=== PATIENT | male | born 1975 | race Caucasian/White ===

== ENCOUNTER 2021-08-20 17:20 | Inpatient (IN) | payer OTHER ==
[2021-08-20 18:14] VITALS: BMI 30.1
[2021-08-20] MEDS ORDERED: MENTHOL/PHENOL 1 EACH UD MM PRN (19:23)
[2021-08-20] MEDS ORDERED: MAGNESIUM HYDROX 2400MG/30ML ORAL SUSPENSION 30 ML CUP PO PRN (19:23)
[2021-08-20] MEDS ORDERED: ACETAMINOPHEN 325 MG TABLET (FP) PO PRN ×2 (19:23)
[2021-08-20] MEDS ORDERED: MAGNESIUM CITRATE 300 ML BOTTLE PO PRN (19:23)
[2021-08-20] MEDS ORDERED: MAG HYDROX/AL HYDROX/SIMETH 30 ML UNIT-DOSE CUP PO PRN (19:23)
[2021-08-20] MEDS ORDERED: NICOTINE POLACRILEX 2 MG GUM BUC PRN (19:23)
[2021-08-20] MEDS ORDERED: ONDANSETRON *ODT* 4 MG TABLET SL PRN (19:23)
[2021-08-20] MEDS ORDERED: BISMUTH SUBSALICYLATE 524 MG/30 ML PO PRN (19:23)
[2021-08-20] MEDS ORDERED: methaDONE HCL 10 MG TABLET (FOR DETOX USE ONLY) PO ONE (19:27)
[2021-08-20] MEDS ORDERED: methaDONE HCL 10 MG TABLET (FOR DETOX USE ONLY) ONE (20:23)
[2021-08-20] MEDS: MELATONIN 5 MG TABLETS PO SCH (21:17)
[2021-08-20] MEDS: THIAMINE HCL 100 MG TABLET (FP) PO SCH (21:17)
[2021-08-21] MEDS: cloNIDine HCL 0.1 MG TABLET PO PRN ×3 (01:28→17:20)
[2021-08-21] MEDS: METHOCARBAMOL 500 MG TABLET PO PRN ×3 (01:30→22:13)
[2021-08-21] MEDS: IBUPROFEN 400 MG TABLET (FP) PO PRN (06:47)
[2021-08-21] MEDS: PRENATAL VITAMINS W/ FOLIC ACID TABLET (FP) PO SCH (09:09)
[2021-08-21] MEDS: diazePAM 5 MG TABLET PO PRN ×4 (09:09→22:13)
[2021-08-21] MEDS: NICOTINE 21 MG/24 HOURS TOPICAL PATCH TD SCH (09:10)
[2021-08-21 11:29] LABS: HEMATOCRIT 40.7 % (35.4-49); HEMOGLOBIN 14.2 GM/dL (11.7-16.9); MCH 30.2 pg (25.7-33.7); MCHC 34.9 g/dl (32.0-35.9); MEAN CELL VOLUME 86.4 fl (80-96); MEAN PLT VOLUME 9.5 fl (7.5-11.1); PLATELET COUNT 173 10^3/uL (134-434); RBC 4.71 M/mm3 (4.00-5.60); RDW 13.3 % (11.9-15.9); WHITE BLOOD COUNT 5.9 K/mm3 (4.0-10.0)
[2021-08-21 11:52] LABS: ALBUMIN 3.7 g/dl (3.4-5.0); CALCIUM 9.4 mg/dL (8.5-10.1)
[2021-08-21 11:53] LABS: BLOOD UREA NITROGEN 9.9 mg/dL (7-18)
[2021-08-21 11:55] LABS: CREATININE 0.7 mg/dL (0.55-1.3)
[2021-08-21 11:56] LABS: BILIRUBIN,TOTAL 0.4 mg/dL (0.2-1); TOT PROT 6.5 g/dl (6.4-8.2)
[2021-08-21] MEDS ORDERED: NICOTINE 10 MG CARTRIDGE (INHALER) IH PRN (14:34)
[2021-08-21] MEDS: hydrOXYzine PAMOATE 25 MG CAPSULE (FP) PO PRN (14:39)
[2021-08-21] MEDS: MELATONIN 5 MG TABLETS PO SCH (22:13)
[2021-08-21] MEDS: THIAMINE HCL 100 MG TABLET (FP) PO SCH (22:13)
[2021-08-22] MEDS: cloNIDine HCL 0.1 MG TABLET PO PRN ×4 (02:39→23:48)
[2021-08-22] MEDS: diazePAM 5 MG TABLET PO PRN ×4 (02:39→21:19)
[2021-08-22] MEDS: METHOCARBAMOL 500 MG TABLET PO PRN ×3 (06:47→21:19)
[2021-08-22] MEDS ORDERED: methaDONE HCL 10 MG TABLET (FOR DETOX USE ONLY) PO ONE (10:00)
[2021-08-22] MEDS: PRENATAL VITAMINS W/ FOLIC ACID TABLET (FP) PO SCH (10:48)
[2021-08-22] MEDS: NICOTINE 21 MG/24 HOURS TOPICAL PATCH TD SCH (10:49)
[2021-08-22] MEDS: hydrOXYzine PAMOATE 25 MG CAPSULE (FP) PO PRN ×2 (12:44→17:36)
[2021-08-22] MEDS: IBUPROFEN 400 MG TABLET (FP) PO PRN (17:36)
[2021-08-22] MEDS: THIAMINE HCL 100 MG TABLET (FP) PO SCH (21:19)
[2021-08-22] MEDS: SUVOREXANT 10 MG TABLET PO PRN (22:40)
[2021-08-23] MEDS: diazePAM 5 MG TABLET PO PRN ×5 (01:22→22:21)
[2021-08-23] MEDS: hydrOXYzine PAMOATE 25 MG CAPSULE (FP) PO PRN (01:22)
[2021-08-23] MEDS: METHOCARBAMOL 500 MG TABLET PO PRN ×3 (03:46→16:54)
[2021-08-23] MEDS ORDERED: methaDONE HCL 10 MG TABLET (FOR DETOX USE ONLY) ONE (09:31)
[2021-08-23] MEDS: PRENATAL VITAMINS W/ FOLIC ACID TABLET (FP) PO SCH (10:33)
[2021-08-23] MEDS: cloNIDine HCL 0.1 MG TABLET PO PRN ×2 (10:34→20:45)
[2021-08-23] MEDS: NICOTINE 21 MG/24 HOURS TOPICAL PATCH TD SCH (10:34)
[2021-08-23] MEDS: IBUPROFEN 400 MG TABLET (FP) PO PRN (13:24)
[2021-08-23] MEDS: SUVOREXANT 10 MG TABLET PO PRN (20:44)
[2021-08-23] MEDS: THIAMINE HCL 100 MG TABLET (FP) PO SCH (21:25)
[2021-08-24] MEDS: diazePAM 5 MG TABLET PO PRN ×6 (02:27→22:37)
[2021-08-24] MEDS: METHOCARBAMOL 500 MG TABLET PO PRN ×3 (02:28→18:25)
[2021-08-24] MEDS: cloNIDine HCL 0.1 MG TABLET PO PRN (08:47)
[2021-08-24] MEDS ORDERED: methaDONE HCL 10 MG TABLET (FOR DETOX USE ONLY) PO ONE (10:00)
[2021-08-24] MEDS: NICOTINE 21 MG/24 HOURS TOPICAL PATCH TD SCH (10:20)
[2021-08-24] MEDS: PRENATAL VITAMINS W/ FOLIC ACID TABLET (FP) PO SCH (10:23)
[2021-08-24] MEDS: hydrOXYzine PAMOATE 25 MG CAPSULE (FP) PO PRN (18:25)
[2021-08-24] MEDS: THIAMINE HCL 100 MG TABLET (FP) PO SCH (22:38)
[2021-08-24] MEDS: SUVOREXANT 10 MG TABLET PO PRN (22:40)
[2021-08-25] MEDS: cloNIDine HCL 0.1 MG TABLET PO PRN (01:06)
[2021-08-25 06:41] VITALS: BP 108/87; PULSE 78; TEMP 97.1
== END 2021-08-25 09:24 | disposition home or self-care (01) | DRG 773 ==
LOC: YASAS 17:20 → Y6N 19:19
PROVIDERS: ADMIT Allergy & Immunology; ATTEND Allergy & Immunology
PROC: HZ2ZZZZ Detoxification Services for Substance Abuse Treatment (ICD-10-PCS; principal; 2021-08-20)
DX: F11.23 Opioid dependence with withdrawal (principal); F17.210 Nicotine dependence, cigarettes, uncomplicated; F19.282 Other psychoactive substance dependence with psychoactive substance-induced sleep disorder; F19.24 Other psychoactive substance dependence with psychoactive substance-induced mood disorder; G47.00 Insomnia, unspecified
CPT/HCPCS: 36415; 80053; 85027; 86780; 93005; 93010; C9803; J0735; U0003; U0005

== ENCOUNTER 2021-10-28 14:15 | Inpatient (IN) | payer OTHER ==
[2021-10-28 14:36] VITALS: BMI 27.8
[2021-10-28] MEDS ORDERED: BISMUTH SUBSALICYLATE 524 MG/30 ML PO PRN (17:16)
[2021-10-28] MEDS ORDERED: NALOXONE (NARCAN) HCL 4 MG/0.1 ML SPRAY NS PRN (17:16)
[2021-10-28] MEDS ORDERED: MAGNESIUM HYDROX 2400MG/30ML ORAL SUSPENSION 30 ML CUP PO PRN (17:16)
[2021-10-28] MEDS ORDERED: ACETAMINOPHEN 325 MG TABLET (FP) PO PRN (17:16)
[2021-10-28] MEDS ORDERED: MENTHOL/PHENOL 1 EACH UD MM PRN (17:16)
[2021-10-28] MEDS ORDERED: MAG HYDROX/AL HYDROX/SIMETH 30 ML UNIT-DOSE CUP PO PRN (17:16)
[2021-10-28] MEDS ORDERED: MAGNESIUM CITRATE 300 ML BOTTLE PO PRN (17:16)
[2021-10-28] MEDS ORDERED: ONDANSETRON *ODT* 4 MG TABLET SL PRN (17:16)
[2021-10-28] MEDS ORDERED: cloNIDine HCL 0.1 MG TABLET PO PRN (17:28)
[2021-10-28] MEDS ORDERED: ALBUTEROL SO4 HFA INHALER IH PRN (18:15)
[2021-10-28] MEDS: hydrOXYzine PAMOATE 25 MG CAPSULE (FP) PO PRN (18:37)
[2021-10-28] MEDS: diazePAM 5 MG TABLET PO PRN (18:37)
[2021-10-28] MEDS: guaiFENesin 200 MG/10 ML 10 ML UNIT-DOSE CUPS PO SCH (18:45)
[2021-10-28] MEDS: NICOTINE 10 MG CARTRIDGE (INHALER) IH PRN (18:47)
[2021-10-28] MEDS: THIAMINE HCL 100 MG TABLET (FP) PO SCH (22:29)
[2021-10-28] MEDS: METHOCARBAMOL 500 MG TABLET PO PRN (22:33)
[2021-10-28] MEDS ORDERED: MELATONIN 5 MG TABLETS PO SCH (23:00)
[2021-10-29] MEDS: guaiFENesin 200 MG/10 ML 10 ML UNIT-DOSE CUPS PO SCH ×5 (01:26→23:42)
[2021-10-29] MEDS: diazePAM 5 MG TABLET PO PRN ×4 (02:20→22:05)
[2021-10-29] MEDS: IBUPROFEN 400 MG TABLET (FP) PO PRN ×2 (06:11→22:07)
[2021-10-29] MEDS: METHOCARBAMOL 500 MG TABLET PO PRN ×2 (06:14→13:36)
[2021-10-29] MEDS: hydrOXYzine PAMOATE 25 MG CAPSULE (FP) PO PRN ×2 (06:14→13:36)
[2021-10-29] MEDS: PRENATAL VITAMINS W/ FOLIC ACID TABLET (FP) PO SCH (10:33)
[2021-10-29] MEDS: NICOTINE 10 MG CARTRIDGE (INHALER) IH PRN (10:47)
[2021-10-29 10:50] LABS: HEMATOCRIT 43.5 % (35.4-49); HEMOGLOBIN 14.9 GM/dL (11.7-16.9); MCH 29.8 pg (25.7-33.7); MCHC 34.2 g/dl (32.0-35.9); MEAN CELL VOLUME 87.2 fl (80-96); MEAN PLT VOLUME 9.2 fl (7.5-11.1); PLATELET COUNT 186 10^3/uL (134-434); RBC 4.98 M/mm3 (4.00-5.60); RDW 14.6 % (11.9-15.9); WHITE BLOOD COUNT 7.9 K/mm3 (4.0-10.0)
[2021-10-29 11:19] LABS: ALBUMIN 3.6 g/dl (3.4-5.0); CALCIUM 9.7 mg/dL (8.5-10.1)
[2021-10-29 11:20] LABS: BLOOD UREA NITROGEN 8.6 mg/dL (7-18)
[2021-10-29 11:22] LABS: CREATININE 0.7 mg/dL (0.55-1.3)
[2021-10-29 11:24] LABS: TOT PROT 6.5 g/dl (6.4-8.2)
[2021-10-29 11:25] LABS: BILIRUBIN,TOTAL 0.7 mg/dL (0.2-1)
[2021-10-29] MEDS: cloNIDine HCL 0.1 MG TABLET PO PRN (17:20)
[2021-10-29] MEDS ORDERED: methaDONE HCL 10 MG TABLET (FOR DETOX USE ONLY) PO ONE (22:00)
[2021-10-29] MEDS: THIAMINE HCL 100 MG TABLET (FP) PO SCH (22:05)
[2021-10-29] MEDS: SUVOREXANT 5 MG TABLET PO PRN (22:06)
[2021-10-30] MEDS: diazePAM 5 MG TABLET PO PRN ×6 (02:17→22:57)
[2021-10-30] MEDS: ACETAMINOPHEN 325 MG TABLET (FP) PO PRN ×2 (02:18→14:51)
[2021-10-30] MEDS: hydrOXYzine PAMOATE 25 MG CAPSULE (FP) PO PRN ×3 (02:18→22:08)
[2021-10-30] MEDS: METHOCARBAMOL 500 MG TABLET PO PRN ×3 (06:22→22:08)
[2021-10-30] MEDS: guaiFENesin 200 MG/10 ML 10 ML UNIT-DOSE CUPS PO SCH ×2 (06:23→12:19)
[2021-10-30] MEDS ORDERED: methaDONE HCL 10 MG TABLET (FOR DETOX USE ONLY) PO ONE ×4 (10:00→22:00)
[2021-10-30] MEDS: PRENATAL VITAMINS W/ FOLIC ACID TABLET (FP) PO SCH (10:34)
[2021-10-30] MEDS: cloNIDine HCL 0.1 MG TABLET PO PRN (12:55)
[2021-10-30] MEDS: IBUPROFEN 400 MG TABLET (FP) PO PRN ×2 (12:55→22:57)
[2021-10-30] MEDS ORDERED: guaiFENesin 200 MG/10 ML 10 ML UNIT-DOSE CUPS PO PRN (15:25)
[2021-10-30] MEDS: NICOTINE 10 MG CARTRIDGE (INHALER) IH PRN (21:53)
[2021-10-30] MEDS: SUVOREXANT 5 MG TABLET PO PRN (22:06)
[2021-10-30] MEDS: THIAMINE HCL 100 MG TABLET (FP) PO SCH (22:08)
[2021-10-31] MEDS: diazePAM 5 MG TABLET PO PRN ×4 (03:33→16:36)
[2021-10-31] MEDS: METHOCARBAMOL 500 MG TABLET PO PRN ×3 (05:42→22:10)
[2021-10-31] MEDS: hydrOXYzine PAMOATE 25 MG CAPSULE (FP) PO PRN ×2 (05:43→22:10)
[2021-10-31] MEDS ORDERED: methaDONE HCL 10 MG TABLET (FOR DETOX USE ONLY) PO ONE ×5 (10:00→22:00)
[2021-10-31] MEDS: PRENATAL VITAMINS W/ FOLIC ACID TABLET (FP) PO SCH (10:25)
[2021-10-31] MEDS: ACETAMINOPHEN 325 MG TABLET (FP) PO PRN (10:30)
[2021-10-31] MEDS: NICOTINE 10 MG CARTRIDGE (INHALER) IH PRN ×2 (12:39→22:13)
[2021-10-31] MEDS: IBUPROFEN 400 MG TABLET (FP) PO PRN (16:35)
[2021-10-31] MEDS ORDERED: diazePAM 5 MG TABLET PO ONE (22:00)
[2021-10-31] MEDS: SUVOREXANT 5 MG TABLET PO PRN (22:08)
[2021-10-31] MEDS: THIAMINE HCL 100 MG TABLET (FP) PO SCH (22:08)
[2021-11-01] MEDS: IBUPROFEN 400 MG TABLET (FP) PO PRN (01:54)
[2021-11-01] MEDS: METHOCARBAMOL 500 MG TABLET PO PRN (05:12)
[2021-11-01] MEDS: hydrOXYzine PAMOATE 25 MG CAPSULE (FP) PO PRN (05:12)
[2021-11-01 08:43] VITALS: BP 104/88; PULSE 80; TEMP 96.8
[2021-11-01] MEDS ORDERED: methaDONE HCL 10 MG TABLET (FOR DETOX USE ONLY) PO ONE ×2 (10:00)
[2021-11-02] MEDS ORDERED: methaDONE HCL 10 MG TABLET (FOR DETOX USE ONLY) PO ONE (10:00)
== END 2021-11-01 10:26 | disposition left against medical advice (07) | DRG 770 ==
LOC: YASAS 14:15 → Y3N 16:47
PROVIDERS: ADMIT Allergy & Immunology; ATTEND Allergy & Immunology
PROC: HZ2ZZZZ Detoxification Services for Substance Abuse Treatment (ICD-10-PCS; principal; 2021-10-28)
DX: F11.23 Opioid dependence with withdrawal (principal); F17.210 Nicotine dependence, cigarettes, uncomplicated; F19.24 Other psychoactive substance dependence with psychoactive substance-induced mood disorder; F19.280 Other psychoactive substance dependence with psychoactive substance-induced anxiety disorder; F19.282 Other psychoactive substance dependence with psychoactive substance-induced sleep disorder; J45.909 Unspecified asthma, uncomplicated; R05.9 Cough, unspecified; Z56.0 Unemployment, unspecified
CPT/HCPCS: 36415; 80053; 85027; 86780; 87811; C9803; J0735; U0003; U0005

== ENCOUNTER 2021-12-12 15:58 | Inpatient (IN) | payer OTHER ==
[2021-12-12] MEDS ORDERED: MENTHOL/PHENOL 1 EACH UD MM PRN (16:51)
[2021-12-12] MEDS ORDERED: MAG HYDROX/AL HYDROX/SIMETH 30 ML UNIT-DOSE CUP PO PRN (16:51)
[2021-12-12] MEDS ORDERED: ONDANSETRON *ODT* 4 MG TABLET SL PRN (16:51)
[2021-12-12] MEDS ORDERED: ALBUTEROL SO4 HFA INHALER IH PRN (16:51)
[2021-12-12] MEDS ORDERED: BISMUTH SUBSALICYLATE 524 MG/30 ML PO PRN (16:51)
[2021-12-12] MEDS ORDERED: MAGNESIUM HYDROX 2400MG/30ML ORAL SUSPENSION 30 ML CUP PO PRN (16:51)
[2021-12-12] MEDS ORDERED: P-EPHED 60MG/TRIPROLIDI 2.5MG TABLET PO PRN (16:51)
[2021-12-12] MEDS ORDERED: MAGNESIUM CITRATE 300 ML BOTTLE PO PRN (16:51)
[2021-12-12] MEDS ORDERED: ACETAMINOPHEN 325 MG TABLET (FP) PO PRN ×2 (16:51)
[2021-12-12 17:18] VITALS: BMI 26.9
[2021-12-12] MEDS: MELATONIN 5 MG TABLETS PO SCH (22:26)
[2021-12-12] MEDS: diazePAM 5 MG TABLET PO PRN (22:28)
[2021-12-12] MEDS: THIAMINE HCL 100 MG TABLET (FP) PO SCH (22:28)
[2021-12-12] MEDS ORDERED: methaDONE HCL 10 MG TABLET (FOR DETOX USE ONLY) PO ONE (22:45)
[2021-12-12] MEDS: hydrOXYzine PAMOATE 25 MG CAPSULE (FP) PO PRN (23:52)
[2021-12-12] MEDS ORDERED: methaDONE HCL 10 MG TABLET (FOR DETOX USE ONLY) ONE (23:58)
[2021-12-13] MEDS: diazePAM 5 MG TABLET PO PRN ×5 (02:34→20:48)
[2021-12-13] MEDS ORDERED: methaDONE HCL 10 MG TABLET (FOR DETOX USE ONLY) ONE (08:59)
[2021-12-13] MEDS: PRENATAL VITAMINS W/ FOLIC ACID TABLET (FP) PO SCH (10:31)
[2021-12-13] MEDS: cloNIDine HCL 0.1 MG TABLET PO PRN ×2 (10:34→22:13)
[2021-12-13 12:07] LABS: ALBUMIN 3.6 g/dl (3.4-5.0); BLOOD UREA NITROGEN 10.2 mg/dL (7-18); CALCIUM 9.2 mg/dL (8.5-10.1)
[2021-12-13 12:08] LABS: BILIRUBIN,TOTAL 0.3 mg/dL (0.2-1); CREATININE 0.6 mg/dL (0.55-1.3); TOT PROT 6.2 g/dl (6.4-8.2)
[2021-12-13 12:11] LABS: HEMATOCRIT 43.1 % (35.4-49); HEMOGLOBIN 14.2 GM/dL (11.7-16.9); MCH 29.1 pg (25.7-33.7); MEAN CELL VOLUME 88.2 fl (80-96); MEAN PLT VOLUME 9.3 fl (7.5-11.1); PLATELET COUNT 185 10^3/uL (134-434); RBC 4.89 M/mm3 (4.00-5.60); RDW 14.2 % (11.9-15.9); WHITE BLOOD COUNT 8.5 K/mm3 (4.0-10.0)
[2021-12-13] MEDS: NICOTINE 10 MG CARTRIDGE (INHALER) IH PRN ×2 (12:14→22:46)
[2021-12-13] MEDS: METHOCARBAMOL 500 MG TABLET PO PRN ×2 (12:40→18:57)
[2021-12-13] MEDS: hydrOXYzine PAMOATE 25 MG CAPSULE (FP) PO PRN (16:51)
[2021-12-13] MEDS: MELATONIN 5 MG TABLETS PO SCH (22:13)
[2021-12-13] MEDS: THIAMINE HCL 100 MG TABLET (FP) PO SCH (22:13)
[2021-12-14] MEDS: diazePAM 5 MG TABLET PO PRN ×6 (02:24→23:42)
[2021-12-14] MEDS: METHOCARBAMOL 500 MG TABLET PO PRN ×3 (02:25→18:51)
[2021-12-14] MEDS: hydrOXYzine PAMOATE 25 MG CAPSULE (FP) PO PRN ×4 (07:06→22:38)
[2021-12-14] MEDS ORDERED: methaDONE HCL 10 MG TABLET (FOR DETOX USE ONLY) PO ONE (10:00)
[2021-12-14] MEDS: PRENATAL VITAMINS W/ FOLIC ACID TABLET (FP) PO SCH (10:42)
[2021-12-14] MEDS: cloNIDine HCL 0.1 MG TABLET PO PRN ×3 (12:42→23:42)
[2021-12-14] MEDS: MELATONIN 5 MG TABLETS PO SCH (22:38)
[2021-12-14] MEDS: THIAMINE HCL 100 MG TABLET (FP) PO SCH (22:38)
[2021-12-15] MEDS: diazePAM 5 MG TABLET PO PRN ×5 (03:44→21:48)
[2021-12-15] MEDS: NICOTINE 10 MG CARTRIDGE (INHALER) IH PRN ×3 (03:46→22:25)
[2021-12-15] MEDS ORDERED: methaDONE HCL 10 MG TABLET (FOR DETOX USE ONLY) ONE (09:33)
[2021-12-15] MEDS: hydrOXYzine PAMOATE 25 MG CAPSULE (FP) PO PRN ×3 (10:08→20:35)
[2021-12-15] MEDS: PRENATAL VITAMINS W/ FOLIC ACID TABLET (FP) PO SCH (10:09)
[2021-12-15] MEDS: METHOCARBAMOL 500 MG TABLET PO PRN ×2 (12:16→20:35)
[2021-12-15] MEDS: IBUPROFEN 400 MG TABLET (FP) PO PRN (16:19)
[2021-12-15] MEDS: MELATONIN 5 MG TABLETS PO SCH (21:48)
[2021-12-15] MEDS: THIAMINE HCL 100 MG TABLET (FP) PO SCH (21:48)
[2021-12-16] MEDS: diazePAM 5 MG TABLET PO PRN ×6 (01:49→22:46)
[2021-12-16] MEDS: IBUPROFEN 400 MG TABLET (FP) PO PRN (01:50)
[2021-12-16] MEDS ORDERED: methaDONE HCL 10 MG TABLET (FOR DETOX USE ONLY) PO ONE (10:00)
[2021-12-16] MEDS: PRENATAL VITAMINS W/ FOLIC ACID TABLET (FP) PO SCH (10:31)
[2021-12-16] MEDS: METHOCARBAMOL 500 MG TABLET PO PRN ×3 (10:31→22:48)
[2021-12-16] MEDS: NICOTINE 10 MG CARTRIDGE (INHALER) IH PRN ×2 (10:51→15:02)
[2021-12-16] MEDS: cloNIDine HCL 0.1 MG TABLET PO PRN ×2 (12:06→22:44)
[2021-12-16] MEDS: MELATONIN 5 MG TABLETS PO SCH (22:44)
[2021-12-16] MEDS: THIAMINE HCL 100 MG TABLET (FP) PO SCH (22:44)
[2021-12-17] MEDS: diazePAM 5 MG TABLET PO PRN ×2 (04:51→09:38)
[2021-12-17 07:07] VITALS: PULSE 78
[2021-12-17 09:37] VITALS: BP 128/64; TEMP 98
[2021-12-17] MEDS: PRENATAL VITAMINS W/ FOLIC ACID TABLET (FP) PO SCH (09:38)
[2021-12-17] MEDS: METHOCARBAMOL 500 MG TABLET PO PRN (09:38)
== END 2021-12-17 10:25 | disposition home or self-care (01) | DRG 773 ==
LOC: YASAS 15:58 → Y6N 20:58
PROVIDERS: ADMIT Allergy & Immunology; ATTEND Allergy & Immunology
PROC: HZ2ZZZZ Detoxification Services for Substance Abuse Treatment (ICD-10-PCS; principal; 2021-12-12)
DX: F11.23 Opioid dependence with withdrawal (principal); F17.210 Nicotine dependence, cigarettes, uncomplicated; J45.909 Unspecified asthma, uncomplicated
CPT/HCPCS: 36415; 80053; 85027; 86780; C9803; J0735; U0003; U0005